=== PATIENT | female | born 1990 | race Hispanic/Latino ===

== ENCOUNTER 2019-11-17 16:34 | Emergency (ER) | payer SELFPAY ==
[~2019-11-17] VITALS: Ht 154.9 cm; Wt 89.8 kg
[2019-11-17] MEDS ORDERED: PENICILLIN G BENZATHINE LA 1.2 MU TBX IM STA (16:42)
[2019-11-17] MEDS ORDERED: DEXAMETHASONE SOD PHOS 10 MG/1 ML VIAL IM ONE (16:45)
[2019-11-17] MEDS ORDERED: ACETAMINOPHEN 325 MG TAB PO ONE (17:00)
== END 2019-11-17 17:38 | disposition home or self-care (01) ==
LOC: ER 16:34
DX: R50.9 Fever, unspecified (principal); J02.0 Streptococcal pharyngitis
CPT/HCPCS: 99283; J0561; J1100